=== PATIENT | female | born 1940 | race Caucasian/White ===

== ENCOUNTER 2019-07-26 09:56 | Emergency (ER) | payer OTHER, MEDICAID ==
[~2019-07-26] VITALS: Ht 154.9 cm; Wt 68.5 kg
[2019-07-26 10:08] VITALS: Ht 154.9 cm; Wt 68.5 kg
[2019-07-26 10:55] LABS: BASOPHIL % 0.8 % (0-2); PLATELET COUNT 135 x10^3mcL (130-400); RED CELL DISTRIBUTION WIDTH 12.9 % (11.5-14.5)
[2019-07-26 11:02] LABS: CALCIUM 8.9 mg/dL (8.5-10.1); CARBON DIOXIDE 28.4 mmol/L (21-32); CHLORIDE SERUM 101 mmol/L (98-107); CREATININE SERUM 0.8 mg/dL (0.6-1.0); GLUCOSE SERUM 138 mg/dL (74-106); POTASSIUM SERUM 3.7 mmol/L (3.5-5.1); SODIUM SERUM 140 mmol/L (136-145)
[2019-07-26 11:07] LABS: ALBUMIN 3.9 g/dL (3.4-5.0); ALKALINE PHOSPHATASE 79 U/L (46-116); ALT/SGPT 43 U/L (14-59); AST/SGOT 43 U/L (15-37); BILIRUBIN TOTAL 0.4 mg/dL (0.20-1.00); LIPASE 127 IU/L (73-393); TOTAL PROTEIN, SERUM 7.6 g/dL (6.4-8.2)
[2019-07-26 14:07] VITALS: BP 149/64
== END 2019-07-26 14:29 | disposition home or self-care (01) ==
LOC: ED 09:56
PROVIDERS: Emergency Medicine
DX: R10.811 Right upper quadrant abdominal tenderness (principal); R10.30 Lower abdominal pain, unspecified; R19.7 Diarrhea, unspecified; I10 Essential (primary) hypertension
CPT/HCPCS: 87046; 87046-59

== ENCOUNTER 2020-09-30 11:21 | Emergency (ER) | payer OTHER, MEDICAID ==
[~2020-09-30] VITALS: Ht 154.9 cm; Wt 68.0 kg
[2020-09-30 11:28] VITALS: Ht 154.9 cm; Wt 68.0 kg
[2020-09-30 12:03] LABS: BASOPHIL % 0.6 % (0.2-1.3); PLATELET COUNT 187 x10^3mcL (179-408); RED CELL DISTRIBUTION WIDTH 12.9 % (12.3-17.7)
[2020-09-30 12:19] LABS: CALCIUM 9.3 mg/dL (8.5-10.1); CARBON DIOXIDE 33.1 mmol/L (21-32); CHLORIDE SERUM 103 mmol/L (98-107); CREATININE SERUM 0.9 mg/dL (0.6-1.0); GLUCOSE SERUM 117 mg/dL (74-106); SODIUM SERUM 137 mmol/L (136-145)
[2020-09-30 12:24] LABS: ALBUMIN 3.5 g/dL (3.4-5.0); ALKALINE PHOSPHATASE 80 U/L (46-116); ALT/SGPT 38 U/L (14-59); AST/SGOT 33 U/L (15-37); BILIRUBIN TOTAL 0.28 mg/dL (0.20-1.00); TOTAL PROTEIN, SERUM 6.7 g/dL (6.4-8.2)
[2020-09-30 13:29] VITALS: BP 165/83
== END 2020-09-30 13:29 | disposition home or self-care (01) ==
LOC: ED 11:21
PROVIDERS: Emergency Medicine
DX: R07.89 Other chest pain (principal); R00.2 Palpitations
CPT/HCPCS: 85378